=== PATIENT | male | born 1990 | race Caucasian/White ===

== ENCOUNTER 2019-01-02 06:33 | Day surgery (SDC) | payer OTHER ==
--- NOTE | 2019-01-02 06:53 | EDM.PDOC ---
ED HPI GENERAL MEDICAL PROBLEM - General Chief Complaint: Abdominal Pain Stated Complaint: ABDOMINAL PAIN Time Seen by Provider: 01/02/19 06:52 Source of Information: Reports: Patient History Limitations: Reports: No Limitations - History of Present Illness INITIAL COMMENTS - FREE TEXT/NARRATIVE: History of present illness: []Patient started having abdominal pain yesterday that was in his upper abdomen that felt sharp and stabbing. He has had several episodes of diarrhea and one episode of emesis. Now in his right lower quadrant he denies any fevers or chills. Review of systems: As per history of present illness and below otherwise all systems reviewed and negative. Past medical history: As per history of present illness and as reviewed below otherwise noncontributory. Surgical history: As per history of present illness and as reviewed below otherwise noncontributory. Social history: No reported history of drug or alcohol abuse. Family history: As per history of present illness and as reviewed below otherwise noncontributory. Physical exam: General: Well developed, well nourished in NAD HEENT: Atraumatic, normocephalic, pupils reactive, negative for conjunctival pallor or scleral icterus, mucous membranes moist, throat clear, neck supple, nontender, trachea midline. Lungs: Clear to auscultation, breath sounds equal bilaterally, chest nontender. Heart: S1S2, regular, negative for clicks, rubs, or JVD. Abdomen: NABS, Soft, nondistended, tender right lower quadrant without rebound or guarding. Negative for masses or hepatosplenomegaly. Negative for costovertebral tenderness. Pelvis: Stable nontender. Genitourinary: Deferred. Rectal: Deferred. Extremities: Atraumatic, negative for cords or calf pain. Neurovascular unremarkable. Neuro: Awake, alert, oriented. Cranial nerves II through XII unremarkable. Cerebellum unremarkable. Motor and sensory unremarkable throughout. Exam nonfocal. Skin:warm and dry Diagnostics: BC with elevated white count 17,000, chemistry, CT abdomen and pelvis showing early appendicitis Therapeutics: IV hydration, morphine, Toradol, Zofran ED Course: Stable Impression: Acute appendicitis Prescriptions: None Plan: Admit to or Definitive disposition and diagnosis as appropriate pending reevaluation and review of above. Middle Abdomen Pain Score (Numeric/FACES): 9 - Related Data Allergies Allergy/AdvReac Type Severity Reaction Status Date / Time No Known Allergies Allergy Verified 01/02/19 06:45 Home Meds: Home Meds . [No Known Home Meds] 01/02/19 [History] Past Medical History - Past Health History Medical/Surgical History: Denies Medical/Surgical History Psychiatric History: Reports: Depression - Infectious Disease History Infectious Disease History: Reports: Chicken Pox Social & Family History - Tobacco Use Smoking Status *Q: Current Every Day Smoker Years of Tobacco use: 1 Packs/Tins Daily: 0.1 - Caffeine Use Caffeine Use: Reports: Coffee - Recreational Drug Use Recreational Drug Type: Reports: Marijuana/Hashish Recreational Drug Use Frequency: Daily ED ROS GENERAL - Review of Systems Review Of Systems: See Below ED EXAM, GI/ABD - Physical Exam Exam: See Below Course - Vital Signs Last Recorded V/S: Last Vital Signs Temp 98.0 F 01/02/19 06:43 Pulse 68 01/02/19 08:09 Resp 18 01/02/19 08:09 BP 103/65 01/02/19 08:09 Pulse Ox 98 01/02/19 08:09 - Orders/Labs/Meds Orders: Active Orders 24 hr Category Date Time Status UA W/MICROSCOPIC [URIN] Stat Lab 01/02/19 07:32 Ordered Sodium Chloride 0.9% [Normal Saline] 1,000 ml Med 01/02/19 08:10 Active IV .Bolus Sodium Chloride 0.9% [Saline Flush] Med 01/02/19 06:58 Active 10 ml FLUSH ASDIRECTED PRN Sodium Chloride 0.9% [Saline Flush] Med 01/02/19 06:58 Active 2.5 ml FLUSH ASDIRECTED PRN Saline Lock Insert [OM.PC] Stat Oth 01/02/19 06:58 Ordered Medication Orders Sodium Chloride (Normal Saline) 1,000 mls @ 999 mls/hr IV .Bolus ONE Stop: 01/02/19 09:10 Last Admin: 01/02/19 08:31 Dose: 999 mls/hr Sodium Chloride (Saline Flush) 10 ml FLUSH ASDIRECTED PRN PRN Reason: Keep Vein Open Last Admin: 01/02/19 07:34 Dose: 10 ml Sodium Chloride (Saline Flush) 2.5 ml FLUSH ASDIRECTED PRN PRN Reason: Keep Vein Open Last Admin: 01/02/19 07:35 Dose: 2.5 ml Labs: Laboratory Tests 01/02/19 01/02/19 Range/Units 07:05 07:05 WBC 17.15 H (4.0-11.0) K/uL RBC 5.12 (4.50-5.90) M/uL Hgb 15.2 (13.0-17.0) g/dL Hct 44.5 (38.0-50.0) % MCV 86.9 (80.0-98.0) fL MCH 29.7 (27.0-32.0) pg MCHC 34.2 (31.0-37.0) g/dL RDW Std Deviation 40.5 (28.0-62.0) fl RDW Coeff of Jack 13 (11.0-15.0) % Plt Count 199 (150-400) K/uL MPV 11.50 (7.40-12.00) fL Neut % (Auto) 89.9 H (48.0-80.0) % Lymph % (Auto) 4.2 L (16.0-40.0) % Pitkin % (Auto) 5.6 (0.0-15.0) % Eos % (Auto) 0.1 (0.0-7.0) % Baso % (Auto) 0.2 (0.0-1.5) % Neut # (Auto) 15.4 H (1.4-5.7) K/uL Lymph # (Auto) 0.7 (0.6-2.4) K/uL Pitkin # (Auto) 1.0 H (0.0-0.8) K/uL Eos # (Auto) 0.0 (0.0-0.7) K/uL Baso # (Auto) 0.0 (0.0-0.1) K/uL Nucleated RBC % 0.0 /100WBC Nucleated RBCs # 0 K/uL Sodium 139 (136-148) mmol/L Potassium 4.3 (3.5-5.1) mmol/L Chloride 102 (98-107) mmol/L Carbon Dioxide 27.5 (21.0-32.0) mmol/L BUN 13 (7.0-18.0) mg/dL Creatinine 1.1 (0.8-1.3) mg/dL Est Cr Clr Drug Dosing 76.36 mL/min Estimated GFR (MDRD) > 60.0 ml/min Glucose 106 (74-106) mg/dL Calcium 8.9 (8.5-10.1) mg/dL Total Bilirubin 0.6 (0.2-1.0) mg/dL AST 15 (15-37) IU/L ALT 14 (14-63) IU/L Alkaline Phosphatase 84 (46-116) U/L Total Protein 7.9 (6.4-8.2) g/dL Albumin 4.6 (3.4-5.0) g/dL Globulin 3.3 (2.6-4.0) g/dL Albumin/Globulin Ratio 1.4 (0.9-1.6) Lipase 74 (73-393) U/L Meds: Medications Generic Name Dose Route Start Last Admin Trade Name Freq PRN Reason Stop Dose Admin Sodium Chloride 1,000 mls @ 999 mls/hr 01/02/19 08:10 01/02/19 08:31 Normal Saline IV 01/02/19 09:10 999 mls/hr .Bolus ONE Administration Sodium Chloride 10 ml 01/02/19 06:58 01/02/19 07:34 Saline Flush FLUSH 10 ml ASDIRECTED PRN Administration Keep Vein Open Sodium Chloride 2.5 ml 01/02/19 06:58 01/02/19 07:35 Saline Flush FLUSH 2.5 ml ASDIRECTED PRN Administration Keep Vein Open Discontinued Medications Generic Name Dose Route Start Last Admin Trade Name Joseph PRN Reason Stop Dose Admin Sodium Chloride 1,000 mls @ 999 mls/hr 01/02/19 07:00 01/02/19 07:34 Normal Saline IV 01/02/19 08:00 999 mls/hr .Bolus ONE Administration Ketorolac Tromethamine 30 mg 01/02/19 07:05 01/02/19 07:34 Toradol IVPUSH 01/02/19 07:06 30 mg ONETIME ONE Administration Morphine Sulfate 2 mg 01/02/19 07:59 01/02/19 08:08 Morphine IVPUSH 01/02/19 08:00 2 mg ONETIME ONE Administration Ondansetron HCl 4 mg 01/02/19 07:59 01/02/19 08:06 Zofran IVPUSH 01/02/19 08:00 4 mg ONETIME ONE Administration Departure - Departure Time of Disposition: 08:59 Disposition: Still A Patient 30 Condition: Good Clinical Impression: Acute appendicitis Qualifiers: Acute appendicitis type: with localized peritonitis Appendicitis gangrene presence: without gangrene Appendicitis perforation presence: without perforation Appendicitis abscess presence: without abscess Qualified Code(s): K35.30 - Acute appendicitis with localized peritonitis, without perforation or gangrene - Discharge Information *PRESCRIPTION DRUG MONITORING PROGRAM REVIEWED*: Not Applicable *COPY OF PRESCRIPTION DRUG MONITORING REPORT IN PATIENT MIGNON: Not Applicable Referrals: PCP,None [Primary Care Provider] - Forms: ED Department Discharge - My Orders Last 24 Hours: My Active Orders 01/02/19 06:58 Sodium Chloride 0.9% [Saline Flush] 10 ml FLUSH ASDIRECTED PRN Sodium Chloride 0.9% [Saline Flush] 2.5 ml FLUSH ASDIRECTED PRN Saline Lock Insert [OM.PC] Stat 01/02/19 07:32 UA W/MICROSCOPIC [URIN] Stat 01/02/19 08:10 Sodium Chloride 0.9% [Normal Saline] 1,000 ml IV .Bolus - Assessment/Plan Last 24 Hours: My Active Orders 01/02/19 06:58 Sodium Chloride 0.9% [Saline Flush] 10 ml FLUSH ASDIRECTED PRN Sodium Chloride 0.9% [Saline Flush] 2.5 ml FLUSH ASDIRECTED PRN Saline Lock Insert [OM.PC] Stat 01/02/19 07:32 UA W/MICROSCOPIC [URIN] Stat 01/02/19 08:10 Sodium Chloride 0.9% [Normal Saline] 1,000 ml IV .Bolus
[2019-01-02] MEDS ORDERED: Sodium Chloride 0.9% 2.5 ML Syringe FLUSH PRN (06:58)
[2019-01-02] MEDS ORDERED: Sodium Chloride 0.9% 10 ML Syringe FLUSH PRN (06:58)
[2019-01-02] MEDS ORDERED: Sodium Chloride 0.9% 1,000 ML IV ONE ×2 (07:00→08:10)
[2019-01-02] MEDS ORDERED: Ketorolac 30 MG/ML SDV IVPUSH ONE (07:05)
[2019-01-02 07:35] LABS: BLOOD UREA NITROGEN,BUN 13 mg/dL (7.0-18.0); CARBON DIOXIDE,CO2 27.5 mmol/L (21.0-32.0); CHLORIDE,CL 102 mmol/L (98-107); GLUCOSE RANDOM 106 mg/dL (74-106); LIPASE 74 U/L (73-393); POTASSIUM,K 4.3 mmol/L (3.5-5.1); SODIUM,NA 139 mmol/L (136-148)
--- NOTE | 2019-01-02 07:51 | CR ---
INDICATION: Chest pain; shortness of breath. COMPARISON: None. TECHNIQUE: Portable AP chest. FINDINGS: Normal size cardiac silhouette. No evidence of acute pneumonic infiltrates or CHF. No pneumothorax or pleural effusion. Impression: Negative portable AP chest. Dictated by Mandy Crockett MD @ Jan 02 2019 7:50AM Signed by Dr. Mandy Crockett @ Jan 02 2019 7:51AM
[2019-01-02] MEDS ORDERED: Ondansetron 4 MG/2 ML SDV IVPUSH ONE (07:59)
[2019-01-02] MEDS ORDERED: Morphine 2 MG/ML Syringe IVPUSH ONE (07:59)
--- NOTE | 2019-01-02 08:48 | CT ---
INDICATION: Right lower quadrant abdominal pain. COMPARISON: None. TECHNIQUE: CT abdomen and pelvis with intravenous contrast; coronal and sagittal reformats. FINDINGS: No abnormal intra pulmonary nodular densities through the lung bases. No evidence of pleural effusion. Normal size cardiac silhouette without any evidence of pericardial effusion. No focal hepatic or splenic pathology. No pancreatic pathology. Gallbladder is unremarkable. No adrenal pathology. No kidney stones or obstructive uropathy. No retroperitoneal lymphadenopathy. No evidence of abdominal or pelvic ascites. CT study of the pelvis is unremarkable. Splenic vein, superior mesenteric vein and the portal vein are unremarkable. Dilated distal half of the appendix measuring 12.3 mm in diameter with an appendicolith in the mid appendix. Very minimal periappendiceal inflammatory changes identified. No evidence of intra-abdominal abscess. IMPRESSION: 1. Dilated appendix measuring 12.3 mm in diameter with minimal periappendiceal inflammatory changes and an appendicolith indicating early acute appendicitis. 2. Negative CT abdomen and pelvis with intravenous contrast otherwise. Please note that all CT scans at this facility use dose modulation, iterative reconstruction, and/or weight-based dosing when appropriate to reduce radiation dose to as low as reasonably achievable. Dictated by Mandy Crockett MD @ Jan 02 2019 8:42AM Signed by Dr. Mandy Crockett @ Jan 02 2019 8:46AM
[2019-01-02] MEDS ORDERED: Piperacillin/Tazobactam 3.375 GM in Sodium Chloride 0.9% 50 ML IV ONE (09:10)
--- NOTE | 2019-01-02 10:14 | PCM.CONS ---
<Le Lau - Last Filed: 01/02/19 10:09> H&P History of Present Illness - General Date of Service: 01/02/19 Admit Problem/Dx: Admission Diagnosis/Problem Admission Diagnosis/Problem Appendicitis Source of Information: Patient History Limitations: Reports: No Limitations - History of Present Illness Initial Comments - Free Text/Narative: Patient is a 28 yr old male that presented to the ED this am with abdominal pain that started out of the blue last night. He has had associated nausea, vomiting, and diarrhea. He denies having this pain before. Palpation makes the pain worse. Nothing has helped the pain. Onset of Symptoms: Reports: Gradual Symptom Onset Date: 01/01/19 Duration of Symptoms: Reports: Constant, Getting Worse Location: Reports: Abdomen Severity: Moderate Improves with: Reports: None Worsens with: Reports: Movement Associated Symptoms: Reports: Nausea/Vomiting, Other (diarrhea) Middle Abdomen Pain Score (Numeric/FACES): 9 - Related Data Allergies/Adverse Reactions: Allergies Allergy/AdvReac Type Severity Reaction Status Date / Time No Known Allergies Allergy Verified 01/02/19 06:45 Home Medications: Home Meds . [No Known Home Meds] 01/02/19 [History] Past Medical History - Past Health History Medical/Surgical History: Denies Medical/Surgical History Other Genitourinary History: Hx of kidney stones Psychiatric History: Reports: Depression - Infectious Disease History Infectious Disease History: Reports: Chicken Pox - Past Surgical History Male Surgical History: Reports: Renal Calculus Social & Family History - Tobacco Use Smoking Status *Q: Current Some Day Smoker Years of Tobacco use: 1 Packs/Tins Daily: 0.1 - Caffeine Use Caffeine Use: Reports: Coffee - Alcohol Use Alcohol Use History: Yes Alcohol Use Frequency: Monthly - Recreational Drug Use Recreational Drug Type: Reports: Marijuana/Hashish Recreational Drug Use Frequency: Daily H&P Review of Systems - Review of Systems: Review Of Systems: See Below General: Reports: No Symptoms HEENT: Reports: No Symptoms Pulmonary: Reports: No Symptoms, Other (pain with deep breaths) Cardiovascular: Reports: No Symptoms Gastrointestinal: Reports: Abdominal Pain, Diarrhea, Nausea, Vomiting Genitourinary: Reports: No Symptoms Musculoskeletal: Reports: No Symptoms Skin: Reports: No Symptoms Exam - Exam Exam: See Below - Vital Signs Vital Signs: Last Vital Signs Temp 98.0 F 01/02/19 06:43 Pulse 83 01/02/19 09:50 Resp 18 01/02/19 09:50 BP 93/60 01/02/19 09:50 Pulse Ox 97 01/02/19 09:50 Weight: 119 lb 0.794 oz - Exam General: Alert, Oriented HEENT: Conjunctiva Clear Lungs: Clear to Auscultation, Normal Respiratory Effort Cardiovascular: Regular Rate, Regular Rhythm GI/Abdominal Exam: Normal Bowel Sounds, Soft, No Distention, Tender (in right lower quadrant) Skin: Warm, Dry, Intact Neuro Extensive - Mental Status: Alert, Oriented x3 Psychiatric: Alert, Normal Affect, Normal Mood - Patient Data Lab Results Last 24 hrs: Laboratory Results - last 24 hr 01/02/19 01/02/19 01/02/19 Range/Units 07:05 07:05 09:45 WBC 17.15 H (4.0-11.0) K/uL RBC 5.12 (4.50-5.90) M/uL Hgb 15.2 (13.0-17.0) g/dL Hct 44.5 (38.0-50.0) % MCV 86.9 (80.0-98.0) fL MCH 29.7 (27.0-32.0) pg MCHC 34.2 (31.0-37.0) g/dL RDW Std Deviation 40.5 (28.0-62.0) fl RDW Coeff of Jack 13 (11.0-15.0) % Plt Count 199 (150-400) K/uL MPV 11.50 (7.40-12.00) fL Neut % (Auto) 89.9 H (48.0-80.0) % Lymph % (Auto) 4.2 L (16.0-40.0) % Burnett % (Auto) 5.6 (0.0-15.0) % Eos % (Auto) 0.1 (0.0-7.0) % Baso % (Auto) 0.2 (0.0-1.5) % Neut # (Auto) 15.4 H (1.4-5.7) K/uL Lymph # (Auto) 0.7 (0.6-2.4) K/uL Burnett # (Auto) 1.0 H (0.0-0.8) K/uL Eos # (Auto) 0.0 (0.0-0.7) K/uL Baso # (Auto) 0.0 (0.0-0.1) K/uL Nucleated RBC % 0.0 /100WBC Nucleated RBCs # 0 K/uL Sodium 139 (136-148) mmol/L Potassium 4.3 (3.5-5.1) mmol/L Chloride 102 (98-107) mmol/L Carbon Dioxide 27.5 (21.0-32.0) mmol/L BUN 13 (7.0-18.0) mg/dL Creatinine 1.1 (0.8-1.3) mg/dL Est Cr Clr Drug Dosing 76.36 mL/min Estimated GFR (MDRD) > 60.0 ml/min Glucose 106 (74-106) mg/dL Calcium 8.9 (8.5-10.1) mg/dL Total Bilirubin 0.6 (0.2-1.0) mg/dL AST 15 (15-37) IU/L ALT 14 (14-63) IU/L Alkaline Phosphatase 84 (46-116) U/L Total Protein 7.9 (6.4-8.2) g/dL Albumin 4.6 (3.4-5.0) g/dL Globulin 3.3 (2.6-4.0) g/dL Albumin/Globulin Ratio 1.4 (0.9-1.6) Lipase 74 (73-393) U/L Urine Color YELLOW Urine Appearance CLEAR Urine pH 6.5 (5.0-8.0) Ur Specific Dwight <= 1.005 (1.001-1.035) Urine Protein NEGATIVE (NEGATIVE) mg/dL Urine Glucose (UA) NEGATIVE (NEGATIVE) mg/dL Urine Ketones >=80 (NEGATIVE) mg/dL Urine Occult Blood NEGATIVE (NEGATIVE) Urine Nitrite NEGATIVE (NEGATIVE) Urine Bilirubin NEGATIVE (NEGATIVE) Urine Urobilinogen 0.2 (<2.0) EU/dL Ur Leukocyte Esterase NEGATIVE (NEGATIVE) Result Diagrams: 01/02/19 07:05 01/02/19 07:05 Imaging Impressions Last 24 hrs: CT abdomen and pelvis: Acute appendicitis CXR: No broken ribs Consult PN Assessment/Plan (1) Acute appendicitis SNOMED Code(s): 59353187 Code(s): K35.80 - UNSPECIFIED ACUTE APPENDICITIS Current Visit: Yes Qualifiers: Acute appendicitis type: with localized peritonitis Appendicitis gangrene presence: unspecified whether gangrene present Appendicitis perforation presence: unspecified whether perforation present Appendicitis abscess presence: unspecified whether abscess present Qualified Code(s): K35.30 - Acute appendicitis with localized peritonitis, without perforation or gangrene Problem List Initiated/Reviewed/Updated: Yes Plan: -Admit for observation -NPO -IV antibiotics -Plan for laparoscopic possible open appendectomy with Dr. Berg today <Enoc Berg - Last Filed: 01/02/19 11:27> H&P History of Present Illness - General Admit Problem/Dx: Admission Diagnosis/Problem Admission Diagnosis/Problem Appendicitis Exam - Exam Exam: See Below - Vital Signs Vital Signs: Last Vital Signs Temp 98.6 F 01/02/19 11:00 Pulse 71 01/02/19 11:00 Resp 16 01/02/19 11:00 BP 153/74 H 01/02/19 11:00 Pulse Ox 96 01/02/19 11:00 - Exam GI/Abdominal Exam: Guarding, Rebound. No: Hernia, Mass (Male) Exam: Deferred Rectal (Males) Exam: Deferred - Patient Data Lab Results Last 24 hrs: Laboratory Results - last 24 hr 01/02/19 01/02/19 01/02/19 Range/Units 07:05 07:05 09:45 WBC 17.15 H (4.0-11.0) K/uL RBC 5.12 (4.50-5.90) M/uL Hgb 15.2 (13.0-17.0) g/dL Hct 44.5 (38.0-50.0) % MCV 86.9 (80.0-98.0) fL MCH 29.7 (27.0-32.0) pg MCHC 34.2 (31.0-37.0) g/dL RDW Std Deviation 40.5 (28.0-62.0) fl RDW Coeff of Jack 13 (11.0-15.0) % Plt Count 199 (150-400) K/uL MPV 11.50 (7.40-12.00) fL Neut % (Auto) 89.9 H (48.0-80.0) % Lymph % (Auto) 4.2 L (16.0-40.0) % Burnett % (Auto) 5.6 (0.0-15.0) % Eos % (Auto) 0.1 (0.0-7.0) % Baso % (Auto) 0.2 (0.0-1.5) % Neut # (Auto) 15.4 H (1.4-5.7) K/uL Lymph # (Auto) 0.7 (0.6-2.4) K/uL Burnett # (Auto) 1.0 H (0.0-0.8) K/uL Eos # (Auto) 0.0 (0.0-0.7) K/uL Baso # (Auto) 0.0 (0.0-0.1) K/uL Nucleated RBC % 0.0 /100WBC Nucleated RBCs # 0 K/uL Sodium 139 (136-148) mmol/L Potassium 4.3 (3.5-5.1) mmol/L Chloride 102 (98-107) mmol/L Carbon Dioxide 27.5 (21.0-32.0) mmol/L BUN 13 (7.0-18.0) mg/dL Creatinine 1.1 (0.8-1.3) mg/dL Est Cr Clr Drug Dosing 76.36 mL/min Estimated GFR (MDRD) > 60.0 ml/min Glucose 106 (74-106) mg/dL Calcium 8.9 (8.5-10.1) mg/dL Total Bilirubin 0.6 (0.2-1.0) mg/dL AST 15 (15-37) IU/L ALT 14 (14-63) IU/L Alkaline Phosphatase 84 (46-116) U/L Total Protein 7.9 (6.4-8.2) g/dL Albumin 4.6 (3.4-5.0) g/dL Globulin 3.3 (2.6-4.0) g/dL Albumin/Globulin Ratio 1.4 (0.9-1.6) Lipase 74 (73-393) U/L Urine Color YELLOW Urine Appearance CLEAR Urine pH 6.5 (5.0-8.0) Ur Specific Dwight <= 1.005 (1.001-1.035) Urine Protein NEGATIVE (NEGATIVE) mg/dL Urine Glucose (UA) NEGATIVE (NEGATIVE) mg/dL Urine Ketones >=80 (NEGATIVE) mg/dL Urine Occult Blood NEGATIVE (NEGATIVE) Urine Nitrite NEGATIVE (NEGATIVE) Urine Bilirubin NEGATIVE (NEGATIVE) Urine Urobilinogen 0.2 (<2.0) EU/dL Ur Leukocyte Esterase NEGATIVE (NEGATIVE) Urine RBC 0-1 (0-2/HPF) Urine WBC 0-1 (0-5/HPF) Ur Epithelial Cells RARE (NONE-FEW) Urine Bacteria RARE (NEGATIVE) Result Diagrams: 01/02/19 07:05 01/02/19 07:05 Consult PN Assessment/Plan (1) Acute appendicitis SNOMED Code(s): 65025078 Code(s): K35.80 - UNSPECIFIED ACUTE APPENDICITIS Current Visit: Yes Qualifiers: Acute appendicitis type: with localized peritonitis Appendicitis gangrene presence: unspecified whether gangrene present Appendicitis perforation presence: unspecified whether perforation present Appendicitis abscess presence: unspecified whether abscess present Qualified Code(s): K35.30 - Acute appendicitis with localized peritonitis, without perforation or gangrene Problem List Initiated/Reviewed/Updated: Yes My Orders Last 24 Hours: My Active Orders 01/02/19 10:06 Resuscitation Status Routine 01/02/19 10:07 Patient Status [ADT] Routine Antiembolic Devices [RC] PER UNIT ROUTINE Insert Urinary Catheter [OM.PC] Timed Oxygen Therapy [RC] ASDIRECTED RT Incentive Spirometry [RC] Q1HWA Skin Preparation [RC] .PREOP Urinary Catheter Assessment [RC] ASDIRECTED Urinary Catheter Assessment [RC] ASDIRECTED Urinary Catheter Assessment [RC] ASDIRECTED Vital Signs [RC] PER UNIT ROUTINE Antiembolic Hose [OM.PC] Routine 01/02/19 10:15 Lactated Ringers [Ringers, Lactated] 1,000 ml IV ASDIRECTED 01/02/19 Dinner Nothing Per Oral Diet [DIET] Plan: Patient seen and examined with Dr. Lau. I agree with her assessment and plan. Laparoscopic appendectomy, possible open appendectomy. Both operative procedures, along with the risks, including, but not limited to, bleeding, infection, pneumonia, deep venous thrombosis, pulmonary emboli, myocardial infarction, and adjacent organ injury have been reviewed with the patient who voices understanding, offers no questions and agrees to proceed.
[2019-01-02] MEDS: Lactated Ringers 1,000 ML IV SCH ×2 (10:57→22:56)
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
[2019-01-02] MEDS ORDERED: Bupivacaine 0.5% 10 ML SDV ONE (11:32)
[2019-01-02] MEDS ORDERED: ceFAZolin 1 GM Vial ONE (11:32)
[2019-01-02] MEDS ORDERED: fentaNYL 100 MCG/2 ML SDV ONE ×2 (12:38→13:39)
[2019-01-02] MEDS ORDERED: Midazolam 1 MG/ML 2 ML SDV ONE (12:38)
[2019-01-02] MEDS ORDERED: Lidocaine 2% 5 ML SDV ONE (12:38)
[2019-01-02] MEDS ORDERED: Propofol 200 MG/20 ML SDV ONE (12:39)
[2019-01-02] MEDS ORDERED: Rocuronium 100 MG/10 ML Syringe ONE (12:39)
[2019-01-02] MEDS ORDERED: cefOXitin 1 GM Vial ONE (13:34)
[2019-01-02] MEDS ORDERED: Dexamethasone 4 MG/ML 5 ML MDV ONE (13:37)
[2019-01-02] MEDS ORDERED: Ondansetron 4 MG/2 ML SDV ONE (13:37)
[2019-01-02] MEDS ORDERED: Glycopyrrolate 0.2 MG/ML SDV ONE ×2 (13:59→14:20)
[2019-01-02] MEDS ORDERED: Neostigmine Methylsulfate 1 MG/ML 5 ML Syringe ONE (13:59)
[2019-01-02] MEDS ORDERED: Ketorolac 30 MG/ML SDV ONE (14:19)
[2019-01-02] MEDS ORDERED: fentaNYL 100 MCG/2 ML SDV IVPUSH PRN (14:25)
[2019-01-02] MEDS ORDERED: Naloxone 0.4 MG/ML Syringe IVPUSH PRN (14:25)
[2019-01-02] MEDS ORDERED: 50% Dextrose in Water 50 ML Syringe IVPUSH PRN (14:25)
[2019-01-02] MEDS ORDERED: EPINEPHrine 1:10,000 1 MG/10 ML Syringe IVPUSH PRN (14:25)
[2019-01-02] MEDS ORDERED: Albuterol 0.083% 2.5 MG/3 ML Neb Soln NEB PRN (14:25)
[2019-01-02] MEDS ORDERED: Atropine 0.1 MG/ML 10 ML Syringe IVPUSH PRN ×2 (14:25)
[2019-01-02] MEDS ORDERED: Morphine 10 MG/ML Syringe IVPUSH PRN (14:42)
[2019-01-02] MEDS ORDERED: Acetaminophen/HYDROcodone 325-5 MG Tab PO PRN (14:42)
--- NOTE | 2019-01-02 14:44 | PCM.OPNOTE ---
- General Post-Op/Procedure Note Date of Surgery/Procedure: 01/02/19 Operative Procedure(s): Laparoscopic appendectomy Pre Op Diagnosis: Acute abdomen Post-Op Diagnosis: Acute nonruptured appendicitis Anesthesia Technique: General ET Tube (ASA IIE) Primary Surgeon: Enoc Berg Motor Installer: Le Lau Fluid Replacement, Intraop: 1,000 Output, Urine Amount: 275 EBL in mLs: 10 Condition: Stable Free Text/Narrative:: DICTATION [id number] CPT CODE 02698
[2019-01-02] MEDS ORDERED: Lactated Ringers 1,000 ML IV SCH (14:45)
--- NOTE | 2019-01-02 15:17 | PCM.POSTAN ---
POST ANESTHESIA ASSESSMENT - MENTAL STATUS Mental Status: Alert, Oriented - VITAL SIGNS Vital Signs: Last Vital Signs Temp 99.5 F 01/02/19 14:34 Pulse 78 01/02/19 15:04 Resp 16 01/02/19 15:04 BP 109/59 L 01/02/19 15:04 Pulse Ox 94 L 01/02/19 15:04 - RESPIRATORY Respiratory Status: Respiratory Rate WNL, Airway Patent, O2 Saturation Stable - CARDIOVASCULAR CV Status: Pulse Rate WNL, Blood Pressure Stable - GASTROINTESTINAL GI Status: No Symptoms - POST OP HYDRATION Hydration Status: Adequate & Stable
--- NOTE | 2019-01-02 15:28 | OR ---
SURGEON: Enoc Berg M.D. DATE OF PROCEDURE: 01/02/2019 OPERATION PERFORMED: Laparoscopic appendectomy. PRIMARY SURGEON: Enoc Berg MD. AUTOMATIC LATHE SETTER: anesthetic assistant: Dr. Lau, PGY2. ANESTHESIA: General endotracheal. ASA CLASSIFICATION: IIE. PREOPERATIVE DIAGNOSIS: Acute abdomen. POSTOPERATIVE DIAGNOSIS: Acute appendicitis without perforation. ESTIMATED BLOOD LOSS: 10 mL. INTRAOPERATIVE FLUID REPLACEMENT: 1000 mL of crystalloid. INTRAOPERATIVE URINE OUTPUT: 275 mL. DESCRIPTION OF PROCEDURE: The patient was taken to the operating room, placed on the operating table in the supine position. Time-out was called for appropriate identification of the patient and procedure. Thigh-high TEDs and sequential compression boots were placed. Following satisfactory attainment of general endotracheal anesthesia, a Antoine catheter was placed in the patient's urinary bladder. The abdomen was prepped with DuraPrep solution, sterile drapes were applied. The skin just above the umbilicus was infiltrated with 0.5% Marcaine solution. A skin incision was made and deepened into the subcutaneous tissue obtaining hemostasis with the use of electrocautery. The Veress needle was introduced into the peritoneal cavity. The saline drop test was positive. Carbon dioxide pneumoperitoneum was established with the release set at 13 cm of water. Once a satisfactory pneumoperitoneum was established, 5 mm camera and port were placed through the supraumbilical incision. The patient was now positioned with his head down and rolled to the left. Under camera vision, 12 mm suprapubic and 5 mm left lower quadrant ports were placed. The appendix was acutely inflamed, but had not ruptured. The mesoappendix was taken down with a Harmonic scalpel. The base of the appendix was doubly ligated with 0 PDS Endoloop's, then transected with the Harmonic scalpel. The appendix was promptly placed in an Endo Catch in maintained in situ. The right lower quadrant was irrigated with sterile saline solution and all fluid was aspirated. The Endo Catch containing appendix was removed through the 12 mm suprapubic port. That port was subsequently removed followed by the left lower quadrant port and finally the supraumbilical camera and port were removed. Wounds were inspected for hemostasis and no significant bleeding was noted. The suprapubic and supraumbilical incisions were closed in 2 layers, approximating the subcutaneous tissue with 3-0 Vicryl and the skin with subcuticular 4-0 Monocryl. The left lower quadrant incision was closed with subcuticular 4-0 Monocryl. All incisions were Steri-Stripped and dressed with sterile Tegaderm pads. Sponge, needle, and instrument counts were all correct. Prior to emergence from anesthesia, the Antoine catheter was removed. Following emergence from anesthesia and extubation, the patient was taken to recovery room in stable condition. RICKEY VENTURA /[id number]
[2019-01-02] MEDS ORDERED: Morphine 2 MG/ML Syringe IVPUSH PRN (16:13)
[2019-01-02] MEDS ORDERED: Iopamidol 755 MG/ML 500 ML Multipack Bottle IVPUSH STA (17:48)
[2019-01-02] MEDS: Acetaminophen/HYDROcodone 325-5 MG Tab PO PRN (19:16)
[2019-01-02] MEDS: cefOXitin 1 GM in Premix Bag 1 BAG IV SCH (22:00)
[2019-01-03] MEDS: Acetaminophen/HYDROcodone 325-5 MG Tab PO PRN ×2 (04:37→08:58)
[2019-01-03] MEDS: cefOXitin 1 GM in Premix Bag 1 BAG IV SCH (05:43)
--- NOTE | 2019-01-03 07:37 | PCM.SURGPN ---
<Le Lau - Last Filed: 01/03/19 07:33> - General Info Date of Service: 01/03/19 POD#: 1 Post-Op Diagnosis: Acute appendicitis Functional Status: Reports: Pain Controlled, Tolerating Diet, Ambulating, Urinating - Review of Systems General: Reports: No Symptoms HEENT: Reports: No Symptoms Pulmonary: Reports: No Symptoms Cardiovascular: Reports: No Symptoms Gastrointestinal: Reports: No Symptoms Genitourinary: Reports: Dysuria Skin: Reports: No Symptoms - Patient Data Vitals - Most Recent: Last Vital Signs Temp 98 F 01/03/19 04:37 Pulse 79 01/03/19 04:37 Resp 17 01/03/19 04:37 BP 91/49 L 01/03/19 04:37 Pulse Ox 94 L 01/03/19 04:37 Weight - Most Recent: 119 lb I&O - Last 24 Hours: Intake & Output 01/02/19 01/03/19 01/03/19 22:59 06:59 14:59 Intake Total 1250 2206 Balance 1250 2206 Lab Results Last 24 Hrs: Laboratory Results - last 24 hr 01/02/19 01/02/19 Range/Units 07:05 09:45 Sodium 139 (136-148) mmol/L Potassium 4.3 (3.5-5.1) mmol/L Chloride 102 (98-107) mmol/L Carbon Dioxide 27.5 (21.0-32.0) mmol/L BUN 13 (7.0-18.0) mg/dL Creatinine 1.1 (0.8-1.3) mg/dL Est Cr Clr Drug Dosing 76.36 mL/min Estimated GFR (MDRD) > 60.0 ml/min Glucose 106 (74-106) mg/dL Calcium 8.9 (8.5-10.1) mg/dL Total Bilirubin 0.6 (0.2-1.0) mg/dL AST 15 (15-37) IU/L ALT 14 (14-63) IU/L Alkaline Phosphatase 84 (46-116) U/L Total Protein 7.9 (6.4-8.2) g/dL Albumin 4.6 (3.4-5.0) g/dL Globulin 3.3 (2.6-4.0) g/dL Albumin/Globulin Ratio 1.4 (0.9-1.6) Lipase 74 (73-393) U/L Urine Color YELLOW Urine Appearance CLEAR Urine pH 6.5 (5.0-8.0) Ur Specific [place] <= 1.005 (1.001-1.035) Urine Protein NEGATIVE (NEGATIVE) mg/dL Urine Glucose (UA) NEGATIVE (NEGATIVE) mg/dL Urine Ketones >=80 (NEGATIVE) mg/dL Urine Occult Blood NEGATIVE (NEGATIVE) Urine Nitrite NEGATIVE (NEGATIVE) Urine Bilirubin NEGATIVE (NEGATIVE) Urine Urobilinogen 0.2 (<2.0) EU/dL Ur Leukocyte Esterase NEGATIVE (NEGATIVE) Urine RBC 0-1 (0-2/HPF) Urine WBC 0-1 (0-5/HPF) Ur Epithelial Cells RARE (NONE-FEW) Urine Bacteria RARE (NEGATIVE) Med Orders - Current: Current Medications Hydrocodone Bitart/Acetaminophen ([place] 325-5 Mg) 1 tab PO Q4H PRN PRN Reason: Pain (moderate 4-6) Last Admin: 01/03/19 04:37 Dose: 1 tab Albuterol (Proventil Neb Soln) 2.5 mg NEB ONETIME PRN PRN Reason: Wheezing Atropine Sulfate (Atropine 0.1 Mg/Ml) 0.5 mg IVPUSH ASDIRECTED PRN PRN Reason: Hypo-perfusion Atropine Sulfate (Atropine 0.1 Mg/Ml) 1 mg IVPUSH ASDIRECTED PRN PRN Reason: Hypo-Perfusion Dextrose/Water (Dextrose 50% In Water) 50 ml IVPUSH ASDIRECTED PRN PRN Reason: Hypoglycemia Epinephrine HCl (Epinephrine 1:10,000) 1 mg IVPUSH ASDIRECTED PRN PRN Reason: ACLS Guidelines Fentanyl (Sublimaze) 50 mcg IVPUSH Q5M PRN PRN Reason: Pain Lactated Ringer's (Ringers, Lactated) 1,000 mls @ 125 mls/hr IV ASDIRECTED [facility] Last Admin: 01/02/19 22:56 Dose: 125 mls/hr Lactated Ringer's (Ringers, Lactated) 1,000 mls @ 125 mls/hr IV ASDIRECTED [facility] Morphine Sulfate (Morphine) 0 mg IVPUSH Q1H PRN PRN Reason: Pain (severe 7-10) Last Admin: 01/02/19 16:14 Dose: 1 mg Morphine Sulfate (Morphine) 2 mg IVPUSH Q1H PRN PRN Reason: Pain (severe 7-10) Last Admin: 01/02/19 22:50 Dose: 2 mg Naloxone HCl (Narcan) 0.1 mg IVPUSH ASDIRECTED PRN PRN Reason: Respiratory Depression Sodium Chloride (Saline Flush) 10 ml FLUSH ASDIRECTED PRN PRN Reason: Keep Vein Open Last Admin: 01/02/19 07:34 Dose: 10 ml Sodium Chloride (Saline Flush) 2.5 ml FLUSH ASDIRECTED PRN PRN Reason: Keep Vein Open Last Admin: 01/02/19 07:35 Dose: 2.5 ml Discontinued Medications Hydrocodone Bitart/Acetaminophen ([place] 325-5 Mg) 1 - 2 tab PO Q4H PRN PRN Reason: Pain (moderate 4-6) Bupivacaine HCl (Sensorcaine-Mpf 0.5%) Confirm Administered Dose 20 ml .ROUTE .STK-MED ONE Stop: 01/02/19 11:33 Cefazolin Sodium (Ancef) Confirm Administered Dose 1 gm .ROUTE .STK-MED ONE Stop: 01/02/19 11:33 Cefoxitin Sodium (Mefoxin) Confirm Administered Dose 1 gm .ROUTE .STK-MED ONE Stop: 01/02/19 13:35 Dexamethasone (Dexamethasone) Confirm Administered Dose 20 mg .ROUTE .STK-MED ONE Stop: 01/02/19 13:38 Fentanyl (Sublimaze) Confirm Administered Dose 100 mcg .ROUTE .STK-MED ONE Stop: 01/02/19 12:39 Fentanyl (Sublimaze) Confirm Administered Dose 100 mcg .ROUTE .STK-MED ONE Stop: 01/02/19 13:40 Glycopyrrolate (Robinul) Confirm Administered Dose 0.4 mg .ROUTE .STK-MED ONE Stop: 01/02/19 14:00 Glycopyrrolate (Robinul) Confirm Administered Dose 0.2 mg .ROUTE .STK-MED ONE Stop: 01/02/19 14:21 Sodium Chloride (Normal Saline) 1,000 mls @ 999 mls/hr IV .Bolus ONE Stop: 01/02/19 08:00 Last Admin: 01/02/19 07:34 Dose: 999 mls/hr Sodium Chloride (Normal Saline) 1,000 mls @ 999 mls/hr IV .Bolus ONE Stop: 01/02/19 09:10 Last Admin: 01/02/19 08:31 Dose: 999 mls/hr Piperacillin Sod/Tazobactam (Sod 3.375 gm/ Sodium Chloride) 50 mls @ 100 mls/ hr IV ONETIME ONE Stop: 01/02/19 09:39 Last Admin: 01/02/19 09:57 Dose: 100 mls/hr Cefoxitin Sodium 1 gm/ Premix 50 mls @ 100 mls/hr IV Q8HR SOFIYA Stop: 01/03/19 06:29 Last Admin: 01/03/19 05:43 Dose: 100 mls/hr Iopamidol (Isovue Multipack-370 (76%)) 100 ml IVPUSH ONETIME STA Stop: 01/02/19 17:49 Last Admin: 01/02/19 17:49 Dose: 100 ml Ketorolac Tromethamine (Toradol) 30 mg IVPUSH ONETIME ONE Stop: 01/02/19 07:06 Last Admin: 01/02/19 07:34 Dose: 30 mg Ketorolac Tromethamine (Toradol) Confirm Administered Dose 30 mg .ROUTE .STK- MED ONE Stop: 01/02/19 14:20 Lidocaine (Xylocaine-Mpf 2%) Confirm Administered Dose 5 ml .ROUTE .STK-MED ONE Stop: 01/02/19 12:39 Midazolam HCl (Versed 1 Mg/Ml) Confirm Administered Dose 2 mg .ROUTE .STK-MED ONE Stop: 01/02/19 12:39 Morphine Sulfate (Morphine) 2 mg IVPUSH ONETIME ONE Stop: 01/02/19 08:00 Last Admin: 01/02/19 08:08 Dose: 2 mg Neostigmine Methylsulfate (Neostigmine) Confirm Administered Dose 5 mg .ROUTE .STK-MED ONE Stop: 01/02/19 14:00 Ondansetron HCl (Zofran) 4 mg IVPUSH ONETIME ONE Stop: 01/02/19 08:00 Last Admin: 01/02/19 08:06 Dose: 4 mg Ondansetron HCl (Zofran) Confirm Administered Dose 4 mg .ROUTE .STK-MED ONE Stop: 01/02/19 13:38 Propofol (Diprivan 20 Ml) Confirm Administered Dose 200 mg .ROUTE .STK-MED ONE Stop: 01/02/19 12:40 Rocuronium [place] (Zemuron) Confirm Administered Dose 100 mg .ROUTE .K-MED ONE Stop: 01/02/19 12:40 - Exam Wound/Incisions: Dressing Dry and Intact General: Alert, Oriented Lungs: Clear to Auscultation, Normal Respiratory Effort Cardiovascular: Regular Rate, Regular Rhythm GI/Abdominal Exam: Soft, Non-Tender, No Distention Extremities: No Pedal Edema Skin: Warm, Dry, Intact - Problem List & Annotations (1) Acute appendicitis SNOMED Code(s): 83856064 Code(s): K35.80 - UNSPECIFIED ACUTE APPENDICITIS Status: Acute Current Visit: Yes Qualifiers: Acute appendicitis type: with localized peritonitis Appendicitis gangrene presence: without gangrene Appendicitis perforation presence: without perforation Appendicitis abscess presence: without abscess Qualified Code(s) : K35.30 - Acute appendicitis with localized peritonitis, without perforation or gangrene - Problem List Review Problem List Initiated/Reviewed/Updated: Yes - My Orders Last 24 Hours: Active Orders 24 hr Category Date Time Status Patient Status [ADT] Routine ADT 01/02/19 10:07 Active Antiembolic Devices [RC] PER UNIT ROUTINE Care 01/02/19 10:07 Active Blood Glucose Check, Bedside [RC] PRN Care 01/02/19 14:25 Active Insert Urinary Catheter [OM.PC] Timed Care 01/02/19 10:07 Ordered Notify Provider Vital Signs [RC] ASDIRECTED Care 01/02/19 14:25 Active Oxygen Therapy [RC] ASDIRECTED Care 01/02/19 10:07 Active Oxygen Therapy [RC] PRN Care 01/02/19 14:25 Active Oxygen Therapy [RC] PRN Care 01/02/19 14:40 Active Pulse Oximetry [RC] ASDIRECTED Care 01/02/19 14:40 Active RT Aerosol Therapy [RC] ASDIRECTED Care 01/02/19 14:25 Active RT Aerosol Therapy [RC] ASDIRECTED Care 01/02/19 14:25 Active RT Incentive Spirometry [RC] Q1HWA Care 01/02/19 10:07 Active RT Incentive Spirometry [RC] Q1HWA Care 01/02/19 14:40 Active Skin Preparation [RC] .PREOP Care 01/02/19 10:07 Active Up ad Emily [RC] PER UNIT ROUTINE Care 01/02/19 14:40 Active Urinary Catheter Assessment [RC] ASDIRECTED Care 01/02/19 10:07 Active Urinary Catheter Assessment [RC] ASDIRECTED Care 01/02/19 10:07 Active Vital Signs [RC] PER UNIT ROUTINE Care 01/02/19 10:07 Active Vital Signs [RC] PER UNIT ROUTINE Care 01/02/19 14:40 Active Vital Signs [RC] Q5M Care 01/02/19 14:25 Active Advance Diet Instructions [DIET] Diet 01/02/19 Dinner Active Nothing Per Oral Diet [DIET] Diet 01/02/19 Dinner Active Acetaminophen/HYDROcodone [[place] 325-5 MG] Med 01/02/19 16:13 Active 1 tab PO Q4H PRN Albuterol [Proventil Neb Soln] Med 01/02/19 14:25 Active 2.5 mg NEB ONETIME PRN Atropine [Atropine 0.1 MG/ML] Med 01/02/19 14:25 Active 0.5 mg IVPUSH ASDIRECTED PRN Atropine [Atropine 0.1 MG/ML] Med 01/02/19 14:25 Active 1 mg IVPUSH ASDIRECTED PRN Dextrose 50% in Water Med 01/02/19 14:25 Active 50 ml IVPUSH ASDIRECTED PRN EPINEPHrine [EPINEPHrine 1:10,000] Med 01/02/19 14:25 Active 1 mg IVPUSH ASDIRECTED PRN Lactated Ringers [Ringers, Lactated] 1,000 ml Med 01/02/19 10:15 Active IV ASDIRECTED Lactated Ringers [Ringers, Lactated] 1,000 ml Med 01/02/19 14:45 Active IV ASDIRECTED Morphine Med 01/02/19 16:13 Active 2 mg IVPUSH Q1H PRN Morphine Med 01/02/19 14:42 Active See Dose Instructions IVPUSH Q1H PRN Naloxone [Narcan] Med 01/02/19 14:25 Active 0.1 mg IVPUSH ASDIRECTED PRN Sodium Chloride 0.9% [Saline Flush] Med 01/02/19 06:58 Active 10 ml FLUSH ASDIRECTED PRN Sodium Chloride 0.9% [Saline Flush] Med 01/02/19 06:58 Active 2.5 ml FLUSH ASDIRECTED PRN fentaNYL [Sublimaze] Med 01/02/19 14:25 Active 50 mcg IVPUSH Q5M PRN Antiembolic Hose [OM.PC] Routine Oth 01/02/19 10:07 Ordered Saline Lock Insert [OM.PC] Stat Oth 01/02/19 06:58 Ordered Resuscitation Status Routine Resus Stat 01/02/19 10:06 Ordered Medication Orders Hydrocodone Bitart/Acetaminophen ([place] 325-5 Mg) 1 tab PO Q4H PRN PRN Reason: Pain (moderate 4-6) Last Admin: 01/03/19 04:37 Dose: 1 tab Admin: 01/02/19 19:16 Dose: 1 tab Albuterol (Proventil Neb Soln) 2.5 mg NEB ONETIME PRN PRN Reason: Wheezing Atropine Sulfate (Atropine 0.1 Mg/Ml) 0.5 mg IVPUSH ASDIRECTED PRN PRN Reason: Hypo-perfusion Atropine Sulfate (Atropine 0.1 Mg/Ml) 1 mg IVPUSH ASDIRECTED PRN PRN Reason: Hypo-Perfusion Dextrose/Water (Dextrose 50% In Water) 50 ml IVPUSH ASDIRECTED PRN PRN Reason: Hypoglycemia Epinephrine HCl (Epinephrine 1:10,000) 1 mg IVPUSH ASDIRECTED PRN PRN Reason: ACLS Guidelines Fentanyl (Sublimaze) 50 mcg IVPUSH Q5M PRN PRN Reason: Pain Lactated Ringer's (Ringers, Lactated) 1,000 mls @ 125 mls/hr IV ASDIRECTED [facility] Last Admin: 01/02/19 22:56 Dose: 125 mls/hr Infusion: 01/02/19 18:57 Dose: 125 mls/hr Admin: 01/02/19 10:57 Dose: 125 mls/hr Lactated Ringer's (Ringers, Lactated) 1,000 mls @ 125 mls/hr IV ASDIRECTED [facility] Morphine Sulfate (Morphine) 0 mg IVPUSH Q1H PRN PRN Reason: Pain (severe 7-10) Last Admin: 01/02/19 16:14 Dose: 1 mg Morphine Sulfate (Morphine) 2 mg IVPUSH Q1H PRN PRN Reason: Pain (severe 7-10) Last Admin: 01/02/19 22:50 Dose: 2 mg Naloxone HCl (Narcan) 0.1 mg IVPUSH ASDIRECTED PRN PRN Reason: Respiratory Depression Sodium Chloride (Saline Flush) 10 ml FLUSH ASDIRECTED PRN PRN Reason: Keep Vein Open Last Admin: 01/02/19 07:34 Dose: 10 ml Sodium Chloride (Saline Flush) 2.5 ml FLUSH ASDIRECTED PRN PRN Reason: Keep Vein Open Last Admin: 01/02/19 07:35 Dose: 2.5 ml - Assessment Assessment (Free Text/Narrative):: 28 yr old male that is POD#1 s/p laparoscopic appendectomy for acute appendicitis. Doing well. Pain with ambulation, as expected. Tolerating diet - Plan Plan (Free Text/Narrative):: -Discharge home today -No antibiotics at discharge -No lifting over 25 lbs for the next 6 weeks <Enoc Berg L - Last Filed: 01/03/19 08:26> - Patient Data Vitals - Most Recent: Last Vital Signs Temp 97.2 F 01/03/19 08:00 Pulse 70 01/03/19 08:00 Resp 18 01/03/19 08:00 BP 91/49 L 01/03/19 08:00 Pulse Ox 96 01/03/19 08:00 I&O - Last 24 Hours: Intake & Output 01/02/19 01/03/19 01/03/19 19:59 03:59 11:59 Intake Total 2250 2206 Output Total 550 Balance 1700 2206 Lab Results Last 24 Hrs: Laboratory Results - last 24 hr 01/02/19 Range/Units 09:45 Urine Color YELLOW Urine Appearance CLEAR Urine pH 6.5 (5.0-8.0) Ur Specific [place] <= 1.005 (1.001-1.035) Urine Protein NEGATIVE (NEGATIVE) mg/dL Urine Glucose (UA) NEGATIVE (NEGATIVE) mg/dL Urine Ketones >=80 (NEGATIVE) mg/dL Urine Occult Blood NEGATIVE (NEGATIVE) Urine Nitrite NEGATIVE (NEGATIVE) Urine Bilirubin NEGATIVE (NEGATIVE) Urine Urobilinogen 0.2 (<2.0) EU/dL Ur Leukocyte Esterase NEGATIVE (NEGATIVE) Urine RBC 0-1 (0-2/HPF) Urine WBC 0-1 (0-5/HPF) Ur Epithelial Cells RARE (NONE-FEW) Urine Bacteria RARE (NEGATIVE) Med Orders - Current: Current Medications Hydrocodone Bitart/Acetaminophen ([place] 325-5 Mg) 1 tab PO Q4H PRN PRN Reason: Pain (moderate 4-6) Last Admin: 01/03/19 04:37 Dose: 1 tab Albuterol (Proventil Neb Soln) 2.5 mg NEB ONETIME PRN PRN Reason: Wheezing Atropine Sulfate (Atropine 0.1 Mg/Ml) 0.5 mg IVPUSH ASDIRECTED PRN PRN Reason: Hypo-perfusion Atropine Sulfate (Atropine 0.1 Mg/Ml) 1 mg IVPUSH ASDIRECTED PRN PRN Reason: Hypo-Perfusion Dextrose/Water (Dextrose 50% In Water) 50 ml IVPUSH ASDIRECTED PRN PRN Reason: Hypoglycemia Epinephrine HCl (Epinephrine 1:10,000) 1 mg IVPUSH ASDIRECTED PRN PRN Reason: ACLS Guidelines Fentanyl (Sublimaze) 50 mcg IVPUSH Q5M PRN PRN Reason: Pain Lactated Ringer's (Ringers, Lactated) 1,000 mls @ 125 mls/hr IV ASDIRECTED [facility] Last Admin: 01/02/19 22:56 Dose: 125 mls/hr Lactated Ringer's (Ringers, Lactated) 1,000 mls @ 125 mls/hr IV ASDIRECTED [facility] Morphine Sulfate (Morphine) 0 mg IVPUSH Q1H PRN PRN Reason: Pain (severe 7-10) Last Admin: 01/02/19 16:14 Dose: 1 mg Morphine Sulfate (Morphine) 2 mg IVPUSH Q1H PRN PRN Reason: Pain (severe 7-10) Last Admin: 01/02/19 22:50 Dose: 2 mg Naloxone HCl (Narcan) 0.1 mg IVPUSH ASDIRECTED PRN PRN Reason: Respiratory Depression Sodium Chloride (Saline Flush) 10 ml FLUSH ASDIRECTED PRN PRN Reason: Keep Vein Open Last Admin: 01/02/19 07:34 Dose: 10 ml Sodium Chloride (Saline Flush) 2.5 ml FLUSH ASDIRECTED PRN PRN Reason: Keep Vein Open Last Admin: 01/02/19 07:35 Dose: 2.5 ml Discontinued Medications Hydrocodone Bitart/Acetaminophen ([place] 325-5 Mg) 1 - 2 tab PO Q4H PRN PRN Reason: Pain (moderate 4-6) Bupivacaine HCl (Sensorcaine-Mpf 0.5%) Confirm Administered Dose 20 ml .ROUTE .STK-MED ONE Stop: 01/02/19 11:33 Cefazolin Sodium (Ancef) Confirm Administered Dose 1 gm .ROUTE .STK-MED ONE Stop: 01/02/19 11:33 Cefoxitin Sodium (Mefoxin) Confirm Administered Dose 1 gm .ROUTE .STK-MED ONE Stop: 01/02/19 13:35 Dexamethasone (Dexamethasone) Confirm Administered Dose 20 mg .ROUTE .STK-MED ONE Stop: 01/02/19 13:38 Fentanyl (Sublimaze) Confirm Administered Dose 100 mcg .ROUTE .STK-MED ONE Stop: 01/02/19 12:39 Fentanyl (Sublimaze) Confirm Administered Dose 100 mcg .ROUTE .STK-MED ONE Stop: 01/02/19 13:40 Glycopyrrolate (Robinul) Confirm Administered Dose 0.4 mg .ROUTE .STK-MED ONE Stop: 01/02/19 14:00 Glycopyrrolate (Robinul) Confirm Administered Dose 0.2 mg .ROUTE .STK-MED ONE Stop: 01/02/19 14:21 Sodium Chloride (Normal Saline) 1,000 mls @ 999 mls/hr IV .Bolus ONE Stop: 01/02/19 08:00 Last Admin: 01/02/19 07:34 Dose: 999 mls/hr Sodium Chloride (Normal Saline) 1,000 mls @ 999 mls/hr IV .Bolus ONE Stop: 01/02/19 09:10 Last Admin: 01/02/19 08:31 Dose: 999 mls/hr Piperacillin Sod/Tazobactam (Sod 3.375 gm/ Sodium Chloride) 50 mls @ 100 mls/ hr IV ONETIME ONE Stop: 01/02/19 09:39 Last Admin: 01/02/19 09:57 Dose: 100 mls/hr Cefoxitin Sodium 1 gm/ Premix 50 mls @ 100 mls/hr IV Q8HR SOFIYA Stop: 01/03/19 06:29 Last Admin: 01/03/19 05:43 Dose: 100 mls/hr Iopamidol (Isovue Multipack-370 (76%)) 100 ml IVPUSH ONETIME STA Stop: 01/02/19 17:49 Last Admin: 01/02/19 17:49 Dose: 100 ml Ketorolac Tromethamine (Toradol) 30 mg IVPUSH ONETIME ONE Stop: 01/02/19 07:06 Last Admin: 01/02/19 07:34 Dose: 30 mg Ketorolac Tromethamine (Toradol) Confirm Administered Dose 30 mg .ROUTE .STK- MED ONE Stop: 01/02/19 14:20 Lidocaine (Xylocaine-Mpf 2%) Confirm Administered Dose 5 ml .ROUTE .STK-MED ONE Stop: 01/02/19 12:39 Midazolam HCl (Versed 1 Mg/Ml) Confirm Administered Dose 2 mg .ROUTE .STK-MED ONE Stop: 01/02/19 12:39 Morphine Sulfate (Morphine) 2 mg IVPUSH ONETIME ONE Stop: 01/02/19 08:00 Last Admin: 01/02/19 08:08 Dose: 2 mg Neostigmine Methylsulfate (Neostigmine) Confirm Administered Dose 5 mg .ROUTE .STK-MED ONE Stop: 01/02/19 14:00 Ondansetron HCl (Zofran) 4 mg IVPUSH ONETIME ONE Stop: 01/02/19 08:00 Last Admin: 01/02/19 08:06 Dose: 4 mg Ondansetron HCl (Zofran) Confirm Administered Dose 4 mg .ROUTE .STK-MED ONE Stop: 01/02/19 13:38 Propofol (Diprivan 20 Ml) Confirm Administered Dose 200 mg .ROUTE .STK-MED ONE Stop: 01/02/19 12:40 Rocuronium [place] (Zemuron) Confirm Administered Dose 100 mg .ROUTE .STK-MED ONE Stop: 01/02/19 12:40 - Problem List & Annotations (1) Acute appendicitis SNOMED Code(s): 07218162 Code(s): K35.80 - UNSPECIFIED ACUTE APPENDICITIS Status: Acute Current Visit: Yes Qualifiers: Acute appendicitis type: with localized peritonitis Appendicitis gangrene presence: without gangrene Appendicitis perforation presence: without perforation Appendicitis abscess presence: without abscess Qualified Code(s) : K35.30 - Acute appendicitis with localized peritonitis, without perforation or gangrene - Problem List Review Problem List Initiated/Reviewed/Updated: Yes - My Orders Last 24 Hours: Active Orders 24 hr Category Date Time Status Patient Status [ADT] Routine ADT 01/02/19 10:07 Active Antiembolic Devices [RC] PER UNIT ROUTINE Care 01/02/19 10:07 Active Blood Glucose Check, Bedside [RC] PRN Care 01/02/19 14:25 Active Insert Urinary Catheter [OM.PC] Timed Care 01/02/19 10:07 Ordered Notify Provider Vital Signs [RC] ASDIRECTED Care 01/02/19 14:25 Active Oxygen Therapy [RC] ASDIRECTED Care 01/02/19 10:07 Active Oxygen Therapy [RC] PRN Care 01/02/19 14:25 Active Oxygen Therapy [RC] PRN Care 01/02/19 14:40 Active Pulse Oximetry [RC] ASDIRECTED Care 01/02/19 14:40 Active RT Aerosol Therapy [RC] ASDIRECTED Care 01/02/19 14:25 Active RT Aerosol Therapy [RC] ASDIRECTED Care 01/02/19 14:25 Active RT Incentive Spirometry [RC] Q1HWA Care 01/02/19 10:07 Active RT Incentive Spirometry [RC] Q1HWA Care 01/02/19 14:40 Active Skin Preparation [RC] .PREOP Care 01/02/19 10:07 Active Up ad Emily [RC] PER UNIT ROUTINE Care 01/02/19 14:40 Active Urinary Catheter Assessment [RC] ASDIRECTED Care 01/02/19 10:07 Active Urinary Catheter Assessment [RC] ASDIRECTED Care 01/02/19 10:07 Active Vital Signs [RC] PER UNIT ROUTINE Care 01/02/19 10:07 Active Vital Signs [RC] PER UNIT ROUTINE Care 01/02/19 14:40 Active Vital Signs [RC] Q5M Care 01/02/19 14:25 Active Advance Diet Instructions [DIET] Diet 01/02/19 Dinner Active Clear Liquid Diet [DIET] Diet 01/03/19 Breakfast Active Acetaminophen/HYDROcodone [[place] 325-5 MG] Med 01/02/19 16:13 Active 1 tab PO Q4H PRN Albuterol [Proventil Neb Soln] Med 01/02/19 14:25 Active 2.5 mg NEB ONETIME PRN Atropine [Atropine 0.1 MG/ML] Med 01/02/19 14:25 Active 0.5 mg IVPUSH ASDIRECTED PRN Atropine [Atropine 0.1 MG/ML] Med 01/02/19 14:25 Active 1 mg IVPUSH ASDIRECTED PRN Dextrose 50% in Water Med 01/02/19 14:25 Active 50 ml IVPUSH ASDIRECTED PRN EPINEPHrine [EPINEPHrine 1:10,000] Med 01/02/19 14:25 Active 1 mg IVPUSH ASDIRECTED PRN Lactated Ringers [Ringers, Lactated] 1,000 ml Med 01/02/19 10:15 Active IV ASDIRECTED Lactated Ringers [Ringers, Lactated] 1,000 ml Med 01/02/19 14:45 Active IV ASDIRECTED Morphine Med 01/02/19 16:13 Active 2 mg IVPUSH Q1H PRN Morphine Med 01/02/19 14:42 Active See Dose Instructions IVPUSH Q1H PRN Naloxone [Narcan] Med 01/02/19 14:25 Active 0.1 mg IVPUSH ASDIRECTED PRN fentaNYL [Sublimaze] Med 01/02/19 14:25 Active 50 mcg IVPUSH Q5M PRN Antiembolic Hose [OM.PC] Routine Oth 01/02/19 10:07 Ordered Resuscitation Status Routine Resus Stat 01/02/19 10:06 Ordered Medication Orders Hydrocodone Bitart/Acetaminophen ([place] 325-5 Mg) 1 tab PO Q4H PRN PRN Reason: Pain (moderate 4-6) Last Admin: 01/03/19 04:37 Dose: 1 tab Admin: 01/02/19 19:16 Dose: 1 tab Albuterol (Proventil Neb Soln) 2.5 mg NEB ONETIME PRN PRN Reason: Wheezing Atropine Sulfate (Atropine 0.1 Mg/Ml) 0.5 mg IVPUSH ASDIRECTED PRN PRN Reason: Hypo-perfusion Atropine Sulfate (Atropine 0.1 Mg/Ml) 1 mg IVPUSH ASDIRECTED PRN PRN Reason: Hypo-Perfusion Dextrose/Water (Dextrose 50% In Water) 50 ml IVPUSH ASDIRECTED PRN PRN Reason: Hypoglycemia Epinephrine HCl (Epinephrine 1:10,000) 1 mg IVPUSH ASDIRECTED PRN PRN Reason: ACLS Guidelines Fentanyl (Sublimaze) 50 mcg IVPUSH Q5M PRN PRN Reason: Pain Lactated Ringer's (Ringers, Lactated) 1,000 mls @ 125 mls/hr IV ASDIRECTED SO[facility] Last Admin: 01/02/19 22:56 Dose: 125 mls/hr Infusion: 01/02/19 18:57 Dose: 125 mls/hr Admin: 01/02/19 10:57 Dose: 125 mls/hr Lactated Ringer's (Ringers, Lactated) 1,000 mls @ 125 mls/hr IV ASDIRECTED [facility] Morphine Sulfate (Morphine) 0 mg IVPUSH Q1H PRN PRN Reason: Pain (severe 7-10) Last Admin: 01/02/19 16:14 Dose: 1 mg Morphine Sulfate (Morphine) 2 mg IVPUSH Q1H PRN PRN Reason: Pain (severe 7-10) Last Admin: 01/02/19 22:50 Dose: 2 mg Naloxone HCl (Narcan) 0.1 mg IVPUSH ASDIRECTED PRN PRN Reason: Respiratory Depression Sodium Chloride (Saline Flush) 10 ml FLUSH ASDIRECTED PRN PRN Reason: Keep Vein Open Last Admin: 01/02/19 07:34 Dose: 10 ml Sodium Chloride (Saline Flush) 2.5 ml FLUSH ASDIRECTED PRN PRN Reason: Keep Vein Open Last Admin: 01/02/19 07:35 Dose: 2.5 ml - Plan Plan (Free Text/Narrative):: Patient seen and examined with Dr. Lau. I agree with her assessment and plan. See Dr. Berg in 7-10 days as scheduled.
--- NOTE | 2019-01-03 09:07 | PCM48HPAN ---
Post Anesthesia Note - EVALUATION WITHIN 48HRS OF ANESTHETIC Vital Signs in Normal Range: Yes Patient Participated in Evaluation: Yes Respiratory Function Stable: Yes Airway Patent: Yes Cardiovascular Function Stable: Yes Hydration Status Stable: Yes Pain Control Satisfactory: Yes Nausea and Vomiting Control Satisfactory: Yes Mental Status Recovered: Yes Vital Signs: Last Vital Signs Temp 36.2 C 01/03/19 08:00 Pulse 70 01/03/19 08:00 Resp 18 01/03/19 08:00 BP 91/49 L 01/03/19 08:00 Pulse Ox 96 01/03/19 08:00
== END 2019-01-03 09:10 | disposition home or self-care (01) ==
LOC: MW.ED 06:33 → MW.SDS 10:14 → MW.MS 15:04 → MW.SDS 01-03 09:10
PROVIDERS: ATTEND Surgery
DX: K35.80 Unspecified acute appendicitis (principal); F17.210 Nicotine dependence, cigarettes, uncomplicated
CPT/HCPCS: 36415; 44970; 71045; 74177; 80053; 81001; 83690; 85025; A9270; J0694; J1100; J1885; J2001; J2250; J2270; J2405; J2543; J2704; J3010; J3490; J7040; J7050; J7120; Q9967; 00840; 88304; J0690

== ENCOUNTER 2019-01-19 21:35 | Observation (INO) | payer OTHER ==
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
[2019-01-19 22:12] LABS: BLOOD UREA NITROGEN,BUN 11 mg/dL (7.0-18.0); CARBON DIOXIDE,CO2 27.1 mmol/L (21.0-32.0); CHLORIDE,CL 97 mmol/L (98-107); GLUCOSE RANDOM 93 mg/dL (74-106); POTASSIUM,K 3.7 mmol/L (3.5-5.1); SODIUM,NA 135 mmol/L (136-148)
[2019-01-19] MEDS ORDERED: Iopamidol 755 Mg/ML 100 ML Bottle IVPUSH ONE (22:38)
--- NOTE | 2019-01-19 23:23 | CT ---
INDICATION: Pain and leukocytosis status post appendectomy. TECHNIQUE: CT abdomen and pelvis acquired with 100 cc Isovue 370 intravenous contrast. COMPARISON: Abdomen and pelvis CT 01/02/2019 FINDINGS: Lower chest: Unremarkable. Liver: Unremarkable. Normal in size and attenuation. No masses. Gallbladder and bile ducts: Unremarkable. No stones or inflammation. No biliary dilatation. Pancreas: Unremarkable. No mass or inflammation. Spleen: Unremarkable. Normal in size. No masses. Adrenal glands: Unremarkable. No nodules. Kidneys: Unremarkable. No masses, stones, or hydronephrosis. GI tract: Stomach is decompressed and unremarkable. There are no dilated loops of large or small intestine. Vasculature: Unremarkable. Omentum/Peritoneum/Abdominal Wall: Prominent fat stranding within the pelvis with a rim enhancing fluid collection in the deep pelvis at the midline measuring up to 5.1 x 4.1 centimeters. Pelvis: Bladder unremarkable. Bones: Unremarkable for age. IMPRESSION: Rim enhancing fluid collection within the midpelvis measuring 5.1 x 4.1 centimeters suggestive of a postoperative abscess in this setting. Please note that all CT scans at this facility use dose modulation, iterative reconstruction, and/or weight-based dosing when appropriate to reduce radiation dose to as low as reasonably achievable. Dictated by Alessio Dockery MD @ Jan 19 2019 11:08PM Signed by Dr. Alessio Dockery @ Jan 19 2019 11:22PM
[2019-01-19] MEDS ORDERED: Lactated Ringers 1,000 ML IV SCH (23:45)
[2019-01-19] MEDS ORDERED: Morphine 2 MG/ML Syringe IVPUSH PRN (23:47)
[2019-01-19] MEDS ORDERED: Ondansetron 4 MG/2 ML SDV IVPUSH PRN (23:47)
[2019-01-20] MEDS: Ampicillin/Sulbactam Na 3 GM in Sodium Chloride 0.9% 100 ML IV SCH ×2 (00:32→08:35)
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
[2019-01-20] MEDS ORDERED: Acetaminophen 325 MG Tab PO ONE (12:00)
== END 2019-01-20 14:25 ==
LOC: MW.ED 21:35 → MW.MS 23:47
PROVIDERS: ADMIT Surgery; ATTEND Surgery
DX: T81.43XA Infection following a procedure, organ and space surgical site, initial encounter (principal); K65.1 Peritoneal abscess; Y83.6 Removal of other organ (partial) (total) as the cause of abnormal reaction of the patient, or of later complication, without mention of misadventure at the time of the procedure; Z87.891 Personal history of nicotine dependence
CPT/HCPCS: 36415; 74177; 80053; 81003; 83605; 85027; 87040; 96361; 96365; 96375; 96376; 99285; A9270; G0378; J0295; J2270; J7030; J7120; Q9967; 99282